=== PATIENT | male | born 1960 | race Caucasian/White ===

== ENCOUNTER 2021-12-22 02:42 | Emergency (ER) | payer OTHER ==
[2021-12-22] MEDS ORDERED: Sodium Chloride 0.9% 1,000 ML IV ONE ×2 (02:52→03:29)
[2021-12-22] MEDS ORDERED: Diphtheria,Pertussis(Acell),Tetanus Vaccine 0.5 ML Syringe IM ONE (03:16)
[2021-12-22] MEDS ORDERED: Bacitracin Oint 28.35 GM Tube TOP STA ×2 (03:31→03:32)
[2021-12-22] MEDS ORDERED: Bacitracin Oint 28.35 GM Tube ONE (03:32)
[2021-12-22 03:50] LABS: CARBON DIOXIDE,CO2 29.6 mmol/L (21.0-32.0); POTASSIUM,K 3.9 mmol/L (3.5-5.1)
== END 2021-12-22 04:43 ==
LOC: MW.ED 02:42
DX: T54.3X1A Toxic effect of corrosive alkalis and alkali-like substances, accidental (unintentional), initial encounter (principal); T21.55XA Corrosion of first degree of buttock, initial encounter; T25.511A Corrosion of first degree of right ankle, initial encounter; T24.511A Corrosion of first degree of right thigh, initial encounter; Z23 Encounter for immunization; W18.30XA Fall on same level, unspecified, initial encounter; Y92.89 Other specified places as the place of occurrence of the external cause; Y99.0 Civilian activity done for income or pay
CPT/HCPCS: 36415; 80053; 83605; 85025; 87635; 90471; 90715; 96360; 99284; A9270; J7030; U0002